=== PATIENT | male | born 1975 | race Caucasian/White ===

== ENCOUNTER 2016-12-04 19:52 | Emergency (ER) | payer OTHER ==
[~2016-12-04] VITALS: Ht 193 cm; Wt 84.5 kg
[~2016-12-04 19:52] MED LIST: AMBIEN 10MG10 MG PO; AMBIEN 5MG TABLE5 MG PO; AMOXICILLIN 8751 TAB PO; ATIVAN 1MG T1 MG/TAB PO; ATIVAN2 MG PO; BACTRIM DS 8001 TAB PO; CARAFATE 1GM1 G PO; CELEXA 20MG20 MG/TAB PO; COGENTIN 1MG1 MG/TAB PO; CYMBALTA 60MG60 MG; DESYREL 50MG50 MG PO; EC NAPROSYN500 MG PO; FLEXERIL 1010 MG/TAB PO; FLONASE NASAL S16 GM NS; INDOCIN50 MG PO; KLONOPIN 0.5MG0.5 MG PO; KLONOPIN 1MG1 MG PO; KLONOPIN2 MG PO; LEXAPRO20 MG PO; LORTAB 5/500 501 TAB PO; MOBIC15 MG PO; NEXIUM 40MG40 MG PO; NO HOME MEDICATIONS; NORCO 325 MG-51 TAB PO; NORCO 325 MG-7.1 TAB PO; PEN-VEE K500 MG PO; PENICILLIN VK250 MG PO; PERCOCET 325 MG1 TA2 PO; PREDNISONE20 MG PO; PRIL40 PO; PROTONIX 40MG T40 MG PO; ROBAXIN 50500 MG/TAB PO; SEROQUEL XR300 MG PO; SEROQUEL300 MG PO; SEROQUEL50 MG PO; SOMA 350MG350 MG/TAB PO; SOMA250 MG PO; ULTRAM 50MG TAB50 MG PO; VALIUM 5MG T5 MG/TAB PO; ZANAFLEX CAPSULE2 MG PO; ZOFRAN ODT4 MG PO; ZOFRAN8 MG PO
[2016-12-04 20:11] VITALS: BP 156/101; PULSE 86; TEMP 97.7
== END 2016-12-04 21:38 | disposition home or self-care (01) ==
LOC: COL.ER 19:52
DX: K06.8 Other specified disorders of gingiva and edentulous alveolar ridge (principal); K08.109 Complete loss of teeth, unspecified cause, unspecified class

== ENCOUNTER 2017-02-23 22:33 | Emergency (ER) | payer OTHER ==
[~2017-02-23] VITALS: Ht 193 cm; Wt 86.4 kg
[2017-02-23 22:34] VITALS: BP 143/86; PULSE 98; TEMP 98.1
== END 2017-02-23 23:45 | disposition home or self-care (01) ==
LOC: COL.ER 22:33
DX: S63.502A Unspecified sprain of left wrist, initial encounter (principal); W01.198A Fall on same level from slipping, tripping and stumbling with subsequent striking against other object, initial encounter; Y92.830 Public park as the place of occurrence of the external cause

== ENCOUNTER 2017-02-25 22:39 | Emergency (ER) | payer OTHER ==
[~2017-02-25] VITALS: Ht 193 cm; Wt 86.4 kg
[2017-02-25 22:44] VITALS: TEMP 98.1
[2017-02-25 23:39] VITALS: BP 167/88; PULSE 100
== END 2017-02-25 23:39 | disposition home or self-care (01) ==
LOC: COL.ER 22:39
DX: M25.532 Pain in left wrist (principal)
CPT/HCPCS: J1885

== ENCOUNTER 2017-03-03 21:29 | Emergency (ER) | payer OTHER ==
[~2017-03-03] VITALS: Ht 193 cm; Wt 86.4 kg
[2017-03-03 21:31] VITALS: BP 165/97; PULSE 108; TEMP 98
[2017-03-03] MEDS ORDERED: OCUFLOX OPHTH DR5 ML OD (23:32)
== END 2017-03-03 22:04 | disposition home or self-care (01) ==
LOC: COL.ER 21:29
DX: S05.01XA Injury of conjunctiva and corneal abrasion without foreign body, right eye, initial encounter (principal); X58.XXXA Exposure to other specified factors, initial encounter

== ENCOUNTER 2017-03-03 23:26 | Emergency (ER) | payer OTHER ==
[~2017-03-03] VITALS: Ht 193 cm; Wt 86.4 kg
[2017-03-03 23:28] VITALS: BP 143/84; TEMP 97.8
[2017-03-03] MEDS ORDERED: OCUFLOX OPHTH DR5 ML OD (23:32)
[2017-03-04 00:39] VITALS: PULSE 87
== END 2017-03-04 00:39 | disposition home or self-care (01) ==
LOC: COL.ER 23:26
DX: H18.821 Corneal disorder due to contact lens, right eye (principal)

== ENCOUNTER 2017-03-30 23:36 | Emergency (ER) | payer OTHER ==
[~2017-03-30] VITALS: Ht 193 cm; Wt 84.5 kg
[~2017-03-30 23:36] MED LIST changes: +OCUFLOX OPHTH DR5 ML OD
[2017-03-30 23:39] VITALS: BP 116/85; PULSE 116; TEMP 98.2
[2017-03-30] MEDS ORDERED: INDOCIN SR 75MG75 MG PO (23:44)
== END 2017-03-31 00:43 | disposition home or self-care (01) ==
LOC: COL.ER 23:36
DX: S93.402A Sprain of unspecified ligament of left ankle, initial encounter (principal); W10.9XXA Fall (on) (from) unspecified stairs and steps, initial encounter; Z86.39 Personal history of other endocrine, nutritional and metabolic disease

== ENCOUNTER 2017-11-24 19:01 | Emergency (ER) | payer OTHER ==
[~2017-11-24] VITALS: Ht 193 cm; Wt 81.8 kg
[~2017-11-24 19:01] MED LIST changes: +INDOCIN SR 75MG75 MG PO; +OCUFLOX OPHTH DR5 ML OS
[2017-11-24 19:02] VITALS: TEMP 97.5
[2017-11-24 20:10] LABS: BASO % 0.3 % (0.0-2.0); EOS # 0.7 (0.0-0.7); EOS % 7.3 % (0-4.0); GRAN # 6.6 (1.4-6.5); GRAN % 69.3 % (42.2-75.2); HEMATOCRIT 46.3 % (42.0-52.0); HEMOGLOBIN 16.5 g/dl (13.5-18.0); LYMPH # 1.4 (1.2-3.4); LYMPH % 15.1 % (20.0-51.0); MEAN CELL VOLUME 89 fl (80.0-100.0); MEAN CORPUSCULAR HEMOGLOBIN 32 pg (27.0-31.0); MEAN CORPUSCULAR HGB CONC 36 g/dl (33.0-37.0); MEAN PLATELET VOLUME 10.7 fl (7.4-10.4); MONO # 0.7 (0.1-0.6); MONO % 7.8 % (1.7-9.3); PLATELET COUNT 218 K/mm3 (130-400); RED BLOOD COUNT 5.18 M/mm3 (4.20-5.60); REDCELL DISTRIBUTION WIDTH-CV 12.2 % (11.5-14.5)
[2017-11-24 20:12] LABS: ALANINE AMINOTRANSFERASE 42 U/L (21-72); ALBUMIN 4.7 gm/dL (3.5-5.0); ALKALINE PHOSPHATASE 69 U/L (50-136); ANION GAP 14 mmol/L (7-16); AST,SGOT 25 U/L (15-37); BILIRUBIN,TOTAL 0.4 mg/dL (0.0-1.0); BLOOD UREA NITROGEN 7 mg/dL (9-20); CALCIUM 9.5 mg/dL (8.4-10.2); CARBON DIOXIDE 22 mmol/L (22-30); CHLORIDE 110 mmol/L (98-107); CREATININE, serum 0.72 mg/dL (0.66-1.25); GLUCOSE 95 mg/dL (74-106); LIPASE 38 U/L (23-300); POTASSIUM 3.7 mmol/L (3.4-5.0); SODIUM 145 mmol/L (137-145); TOTAL PROTEIN 7.6 gm/dL (6.4-8.2)
[2017-11-24 20:14] LABS: C-REACTIVE PROTEIN < 0.5 mg/dL (0.0-0.9)
[2017-11-24 20:47] LABS: TROPONIN-I < 0.012 ng/mL (0.000-0.034)
[2017-11-24] MEDS ORDERED: PROTONIX 40MG T40 MG PO (22:59)
[2017-11-24 23:00] VITALS: BP 144/91; PULSE 87
== END 2017-11-24 23:18 | disposition home or self-care (01) ==
LOC: COL.ER 19:01
PROVIDERS: Emergency Medicine
DX: R07.89 Other chest pain (principal); F17.210 Nicotine dependence, cigarettes, uncomplicated
CPT/HCPCS: J2270; J2405

== ENCOUNTER 2017-11-26 16:44 | Emergency (ER) | payer OTHER ==
[~2017-11-26] VITALS: Ht 193 cm; Wt 78.2 kg
[2017-11-26 16:51] VITALS: BP 143/96; PULSE 77; TEMP 98.2
== END 2017-11-26 19:06 | disposition home or self-care (01) ==
LOC: COL.ER 16:44
DX: R07.9 Chest pain, unspecified (principal); M54.5 Low back pain; F17.210 Nicotine dependence, cigarettes, uncomplicated

== ENCOUNTER 2017-12-13 22:57 | Emergency (ER) | payer OTHER ==
[~2017-12-13] VITALS: Ht 193 cm; Wt 81.8 kg
[2017-12-13 23:02] VITALS: TEMP 97.4
[2017-12-14] MEDS ORDERED: FLEXERIL 1010 MG/TAB PO (00:18)
[2017-12-14] MEDS ORDERED: NORCO 325 MG-51 TAB PO (00:18)
[2017-12-14 00:40] VITALS: BP 127/96; PULSE 100
== END 2017-12-14 00:40 | disposition home or self-care (01) ==
LOC: COL.ER 22:57
DX: S40.011A Contusion of right shoulder, initial encounter (principal); S30.1XXA Contusion of abdominal wall, initial encounter; S40.211A Abrasion of right shoulder, initial encounter; S50.811A Abrasion of right forearm, initial encounter; M54.5 Low back pain; G89.29 Other chronic pain; F17.210 Nicotine dependence, cigarettes, uncomplicated; W10.9XXA Fall (on) (from) unspecified stairs and steps, initial encounter; Y92.009 Unspecified place in unspecified non-institutional (private) residence as the place of occurrence of the external cause
CPT/HCPCS: J1885

== ENCOUNTER 2017-12-16 16:13 | Emergency (ER) | payer OTHER ==
[~2017-12-16] VITALS: Ht 193 cm; Wt 81.8 kg
[2017-12-16 16:17] VITALS: BP 143/89; TEMP 99.3
[2017-12-16 17:24] LABS: COLLECTION METHOD CLEAN CATCH
[2017-12-16 17:38] LABS: PH 6 (5-8); SQUAMOUS EPITHELIAL 0-2 /hpf; URINE APPEARANCE Clear; URINE BACTERIA Rare /hpf; URINE BILIRUBIN Negative (NEGATIVE); URINE BLOOD 3+ (NEGATIVE); URINE COLOR Yellow; URINE GLUCOSE Negative (NEGATIVE); URINE KETONE Negative (NEGATIVE); URINE LEUKOCYTE ESTERASE Negative (NEGATIVE); URINE NITRATE Negative (NEGATIVE); URINE PROTEIN(semi-quant) Negative (NEGATIVE); URINE RBC >50 /hpf; URINE UROBILINOGEN Negative (NEGATIVE)
[2017-12-16 19:54] VITALS: PULSE 105
== END 2017-12-16 19:57 | disposition home or self-care (01) ==
LOC: COL.ER 16:13
PROVIDERS: Nurse Practitioner
DX: R10.9 Unspecified abdominal pain (principal); F41.9 Anxiety disorder, unspecified; G89.29 Other chronic pain; F17.210 Nicotine dependence, cigarettes, uncomplicated; W10.9XXA Fall (on) (from) unspecified stairs and steps, initial encounter
CPT/HCPCS: J2270; J2405; J7050; Q9967

== ENCOUNTER 2017-12-26 16:58 | Emergency (ER) | payer OTHER ==
[~2017-12-26] VITALS: Ht 193 cm; Wt 81.8 kg
[2017-12-26 17:06] VITALS: TEMP 100.2
[2017-12-26 19:09] LABS: BASO % 0.2 % (0.0-2.0); EOS # 0.2 (0.0-0.7); EOS % 3.2 % (0-4.0); GRAN # 3.3 (1.4-6.5); GRAN % 68.6 % (42.2-75.2); HEMATOCRIT 41.8 % (42.0-52.0); LYMPH # 0.8 (1.2-3.4); LYMPH % 17.5 % (20.0-51.0); MEAN CELL VOLUME 88 fl (80.0-100.0); MEAN CORPUSCULAR HEMOGLOBIN 32 pg (27.0-31.0); MEAN CORPUSCULAR HGB CONC 36 g/dl (33.0-37.0); MEAN PLATELET VOLUME 10.4 fl (7.4-10.4); MONO # 0.5 (0.1-0.6); MONO % 10.3 % (1.7-9.3); PLATELET COUNT 156 K/mm3 (130-400); RED BLOOD COUNT 4.75 M/mm3 (4.20-5.60); REDCELL DISTRIBUTION WIDTH-CV 11.9 % (11.5-14.5)
[2017-12-26 19:19] LABS: ALBUMIN 4.1 gm/dL (3.5-5.0); BILIRUBIN,TOTAL 0.3 mg/dL (0.0-1.0); CREATININE, serum 0.73 mg/dL (0.66-1.25); POTASSIUM 3.5 mmol/L (3.4-5.0)
[2017-12-26 20:36] VITALS: BP 138/74; PULSE 89
== END 2017-12-26 20:37 | disposition home or self-care (01) ==
LOC: COL.ER 16:58
PROVIDERS: Emergency Medicine
DX: J10.1 Influenza due to other identified influenza virus with other respiratory manifestations (principal)
CPT/HCPCS: J1200; J1885; J3010; J7030